=== PATIENT | male | born 1990 ===

== ENCOUNTER 2022-10-29 08:08 | Outpatient (CLI) | payer OTHER | END 2022-10-29 08:19 | disposition home or self-care (01) | LOC: MRI 08:08 | PROVIDERS: ATTEND Neurological Surgery | DX: M51.16 Intervertebral disc disorders with radiculopathy, lumbar region (principal) | CPT/HCPCS: 72148 ==

== ENCOUNTER 2023-05-17 08:15 | Outpatient (CLI) | payer OTHER | END 2023-05-17 08:27 | disposition home or self-care (01) | LOC: MRI 08:15 | PROVIDERS: ATTEND Neurological Surgery | DX: M54.16 Radiculopathy, lumbar region (principal); M51.16 Intervertebral disc disorders with radiculopathy, lumbar region | CPT/HCPCS: 72148 ==

== ENCOUNTER 2024-09-21 07:27 | Outpatient (CLI) | payer OTHER | END 2024-09-21 07:38 | disposition home or self-care (01) | LOC: MRI 07:27 | PROVIDERS: ATTEND Neurological Surgery | DX: M51.16 Intervertebral disc disorders with radiculopathy, lumbar region (principal) | CPT/HCPCS: 72148 ==